=== PATIENT | male | born 1985 | race Caucasian/White ===

== ENCOUNTER 2019-02-05 14:45 | Emergency (ER) | payer MEDICARE, MEDICAID ==
[~2019-02-05] VITALS: Ht 185.4 cm; Wt 72.3 kg
[2019-02-05 14:56] VITALS: BP 126/90
[2019-02-05] MEDS ORDERED: LIDOcaine 5% patch TP STA (15:20)
[2019-02-05] MEDS ORDERED: LIDOcaine 1% 30ml preserv. free vial IJ STA (15:20)
[2019-02-05] MEDS ORDERED: LIDO700A32 TOP (15:59)
== END 2019-02-05 16:16 | disposition home or self-care (01) ==
LOC: ER 14:46
DX: S46.811A Strain of other muscles, fascia and tendons at shoulder and upper arm level, right arm, initial encounter (principal); F12.90 Cannabis use, unspecified, uncomplicated; M60.811 Other myositis, right shoulder; Z88.1 Allergy status to other antibiotic agents; Z88.5 Allergy status to narcotic agent; Z87.820 Personal history of traumatic brain injury; X50.1XXA Overexertion from prolonged static or awkward postures, initial encounter; Y93.89 Activity, other specified; Y92.89 Other specified places as the place of occurrence of the external cause; Y99.9 Unspecified external cause status
CPT/HCPCS: 20553; 73030; 99284; J2001; 20552

== ENCOUNTER 2019-11-28 10:25 | Emergency (ER) | payer MEDICARE, MEDICAID ==
[~2019-11-28] VITALS: Ht 185.4 cm; Wt 72.7 kg
[~2019-11-28 10:25] MED LIST: LIDO700A32 TOP
--- NOTE | 2019-11-28 11:03 | NUR ---
RELIEVING RN FOR BREAK, DR CELAYA AT BEDSIDE TO EVAL PT
[2019-11-28] MEDS ORDERED: ketorolac tromethamine 15mg/ml inj. IV ONE (11:30)
[2019-11-28] MEDS ORDERED: ondansetron/PF 4mg/2ml inj IV ONE (11:30)
[2019-11-28] MEDS ORDERED: normal saline 1000ML IV soln IVB ONE (11:30)
[2019-11-28 12:04] LABS: BASOPHILS % (AUTO) 0.1 % (0-1); EOSINOPHILS % (AUTO) 0.2 % (0-6); HEMATOCRIT 47.9 % (42.0-52.0); HEMOGLOBIN 16.3 g/dl (14.0-17.9); LYMPHOCYTES % (AUTO) 11.8 % (21-51); MEAN CORPUSCULAR HGB CONC 34.1 g/dL (33.0-36.5); MEAN CORPUSCULAR VOLUME 96.8 FL (78-98); MEAN PLATELET VOLUME 9.9 FL (7.4-10.4); MONOCYTES # (AUTO) 0.4 X10'3 (0-0.9); MONOCYTES % (AUTO) 5.1 % (2-12); NEUTROPHILS # (AUTO) 6.9 X10'3 (1.8-7.7); NEUTROPHILS % (AUTO) 82.8 % (42-75); PLATELET COUNT 138 X10'3 (140-440); RED BLOOD COUNT 4.95 X10'6 (4.70-6.10); RED CELL DISTRIBUTION WIDTH 13.8 % (11.5-14.5); WHITE BLOOD COUNT 8.3 X10'3 (4.5-11.0)
[2019-11-28 12:16] LABS: ALANINE AMINOTRANSFERASE 20 U/L (12-78); ALBUMIN 4.2 G/DL (3.4-5.0); ALBUMIN/GLOBULIN RATIO 1.6 (1.1-1.5); ALKALINE PHOSPHATASE 43 IU/L (46-116); ANION GAP 5 (8-16); ASPARTATE AMINO TRANSFERASE 9 U/L (10-37); BILIRUBIN,TOTAL 0.4 MG/DL (0.1-1.0); BLOOD UREA NITROGEN 15 MG/DL (7-18); BUN/CREATININE RATIO 12.9 (5.4-32.0); CHLORIDE 108 MMOL/L (99-107); CREATININE 1.16 MG/DL (0.60-1.10); GLUCOSE 98 MG/DL (70-104); LIPASE 99 U/L (73-393); POTASSIUM 4.4 MMOL/L (3.5-5.1); SODIUM 142 MMOL/L (135-145); TOTAL CARBON DIOXIDE 28.6 MMOL/L (24-32); TOTAL PROTEIN 6.8 G/DL (6.4-8.2); eGFR 72 ML/MIN
[2019-11-28 13:57] LABS: CLARITY,URINE CLOUDY (Clear); COLOR,URINE BROWN (Yellow); GLUCOSE, URINE NEGATIVE (Neg); KETONES,URINE 15 mg/dl (Neg); LEUKOCYTE ESTERASE ,URINE TRACE (Neg); NITRITES, URINE NEGATIVE (Neg); OCCULT BLOOD,URINE LARGE (Neg); PROTEIN,URINE 100 mg/dl (Neg); UROBILINOGEN,URINE 0.2 E.U/dL (0.2-1.0)
[2019-11-28 13:59] LABS: UA COLLECTION TYPE URINAL
[2019-11-28 14:08] LABS: BACTERIA,URINE FEW /HPF (Neg); RBC,URINE TNTC /HPF (0-2); SQUAMOUS EPITHELIAL CELL,UR FEW /LPF (FEW)
[2019-11-28] MEDS ORDERED: HYDR-3965 PO (14:59)
[2019-11-28] MEDS ORDERED: ONDA8TAB6 PO (14:59)
[2019-11-28] MEDS ORDERED: HYDROcodone/acetaminophen 5mg/325mg tablet PO ONE (15:00)
[2019-11-28 15:10] VITALS: BP 97/106
== END 2019-11-28 15:13 | disposition home or self-care (01) ==
LOC: ER 10:26
DX: N20.0 Calculus of kidney (principal); F12.90 Cannabis use, unspecified, uncomplicated; Z88.8 Allergy status to other drugs, medicaments and biological substances; Z86.69 Personal history of other diseases of the nervous system and sense organs; Z88.5 Allergy status to narcotic agent; Z79.899 Other long term (current) drug therapy
CPT/HCPCS: 36415; 74176; 80053; 81001; 83690; 85025; 87088; 96374; 96375; 99284; J1885; J2405; J7030